=== PATIENT | male | born 1960 | race Caucasian/White ===

== ENCOUNTER → 2018-02-20 | Outpatient (CLI) | payer OTHER ==
--- NOTE | 2018-02-20 13:11 | KCIC ---
Examination: CT chest without contrast HISTORY: History of COPD, abnormal chest x-ray COMPARISON: None available TECHNIQUE: Axial CT images of the chest were performed without contrast. Coronal and sagittal deformities are performed Exposure: One or more of the following individualized dose reduction techniques were utilized for this examination: 1. Automated exposure control 2. Adjustment of the mA and/or kV according to patient size 3. Use of iterative reconstruction technique FINDINGS: The visualized thyroid gland grossly appears unremarkable. The central airways are patent. The heart size grossly appears unremarkable. No radiologically significant mediastinal or axillary lymphadenopathy is identified. The heart size grossly appears unremarkable. Mild aortic atherosclerosis. Moderate emphysematous changes identified in the bilateral lungs. There is a 1.6 cm nodule identified in the right lower lobe of the lung. There is a smaller 8 mm nodule identified in the right lower lobe lung abutting the pleura. There is a 1 cm nodule identified in the left upper lobe of the lung abutting the pleura. There is a 1.7 cm nodule identified in the left lower lobe of the lung, and a smaller 6 mm nodule identified in the left lower lobe lung abutting the pleura. No evidence of pleural effusion or pneumothorax identified. The visualized noncontrasted liver, adrenals grossly appears unremarkable. Calcified granulomas identified in the spleen. Mild degenerative changes thoracic spine. IMPRESSION: 1. Multiple nodules identified in the right and left lower lobes of the lung as described above with the largest measuring 1.6 cm in the right lower lobe and a 1.7 cm the left lower lobe of the lung. Given the multiplicity of nodules , metastasis is a primary concern. PET/CT follow-up is recommended. 2. Moderate lung emphysematous changes. Electronically signed by: Joaquin Rosas MD (02/20/2018 1:07 PM) [id number]
== END | disposition home or self-care (01) ==
LOC: KCIC CT 12:23
PROVIDERS: ATTEND Physician Assistant Medical
DX: J44.9 Chronic obstructive pulmonary disease, unspecified (principal); R91.8 Other nonspecific abnormal finding of lung field; I70.0 Atherosclerosis of aorta; D73.89 Other diseases of spleen; Z87.891 Personal history of nicotine dependence
CPT/HCPCS: 71250

== ENCOUNTER → 2018-03-07 | Outpatient (CLI) | payer OTHER ==
--- NOTE | 2018-03-07 13:36 | RAD ---
FDG tumor localization scan, PET/CT, 03/07/2018: History: Lung nodules, possible metastases Following IV injection of 11.6 mCi of 18 F-FDG, imaging was performed from the skull base to the proximal thighs. The noncontrast CT component was performed for attenuation correction and anatomic localization purposes rather than for primary diagnosis. The patient's blood glucose level at the time of injection was 100 MG/DL. Physiologic activity is evident in the neck. No hypermetabolic neck lesion is seen. There is a 17 mm slightly irregular soft tissue nodule in the posteromedial aspect of the right lower lobe. It is hypermetabolic with a maximum SUV of t 3.1. There is a similar 19 mm nodule in the lateral aspect of the left lower lobe which demonstrates a maximum SUV of 2.5. There is a more subtle 7 mm nodule in the right suprahilar region which lies adjacent pulmonary vessels which is also hypermetabolic demonstrating a maximum SUV of 3.1. An 8 mm irregular nodule in the anterior aspect of the left upper lobe demonstrates a maximum SUV of 1.9, similar to mediastinal background. A couple of other tiny scattered pulmonary opacities do not demonstrate abnormal FDG uptake, however, that is likely due to their small sizes. There are emphysematous changes in the lungs. A calcified granuloma is present in the left lung. There is a mildly hypermetabolic foci at both hilum producing a maximum SUV of 4.0 on the left and 3.3 on the right. The CT component demonstrates no definite enlarged lymph node. These findings may be on a neoplastic or reactive basis. No hypermetabolic mediastinal adenopathy is seen. Normal GI tract and urinary tract activity is present in the abdomen and pelvis. There is a focus of mural thickening in the mid sigmoid colon which is markedly hypermetabolic with a maximum SUV of 13. This mural thickening extends over a distance measuring 4-5 cm. A primary colonic malignancy is suspected. A couple of small sigmoid diverticula are noted. The CT component demonstrates several tiny paracolic densities compatible with small lymph nodes. No definite hypermetabolic abdominal or pelvic adenopathy is delineated. IMPRESSION: 1. Moderate hypermetabolic mural thickening in the mid sigmoid colon suggesting a primary colonic malignancy. Colonoscopic evaluation is suggested. 2. Hypermetabolic bilateral pulmonary nodules, likely on a metastatic basis. 3. Slightly hypermetabolic foci at both [place] may be on a reactive or neoplastic basis.
== END | disposition home or self-care (01) ==
LOC: PETSC 11:11
PROVIDERS: ATTEND Physician Assistant Medical
DX: R91.8 Other nonspecific abnormal finding of lung field (principal); J44.9 Chronic obstructive pulmonary disease, unspecified; K57.30 Diverticulosis of large intestine without perforation or abscess without bleeding; J84.10 Pulmonary fibrosis, unspecified
CPT/HCPCS: 78815; A9552